=== PATIENT | male | born 1945 | race Caucasian/White ===

== ENCOUNTER 2017-10-14 16:57 | Emergency (ER) | payer OTHER ==
[~2017-10-14] VITALS: Ht 172.7 cm; Wt 129.3 kg
--- NOTE | 2017-10-14 19:21 | RADIOLOGY REPORT ---
EXAMINATION: CHEST 2 VIEWS CLINICAL INFORMATION: Cough. COMPARISON: 09/12/2015. TECHNIQUE: PA and lateral views of the chest were obtained. FINDINGS: The cardiac silhouette is not enlarged. The mediastinal and hilar contours are unremarkable. There are neither pleural effusions nor pneumothoraces. There are no consolidations. Lungs are hyperinflated. The osseous structures are stable. IMPRESSION: No evidence for acute disease. Lung hyperinflation.
[2017-10-14 20:37] LABS: ABSOLUTE BASOPHIL COUNT 0 /CUMM (0.0-0.2); ABSOLUTE EOSINOPHIL COUNT 0 /CUMM (0.0-0.7); ABSOLUTE GRANULOCYTE CT 9.7 /CUMM (1.4-6.5); ABSOLUTE LYMPH COUNT 1.3 /CUMM (1.2-3.4); ABSOLUTE MONOCYTE COUNT 1.1 /CUMM (0.10-0.60); BASOPHIL % 0.4 % (0.0-2.0); EOSINOPHIL % 0.2 % (0-5); GRANULOCYTE % 79.3 % (42.2-75.2); HEMATOCRIT 40.5 % (42-52); MEAN CORPUSCULAR HGB 27.9 PG (27.0-31.0); MEAN CORPUSCULAR HGB CONC 33.5 G/DL (33.0-37.0); MEAN CORPUSCULAR VOLUME 83.3 FL (80.0-94.0); MEAN PLATELET VOLUME 9.3 FL (7.4-10.4); PLATELET COUNT 254 /CUMM (130-400); RBC DISTRIBUTION WIDTH 15.8 % (11.5-14.5); RED BLOOD CELL CT 4.86 /CUMM (4.70-6.10); WHITE BLOOD CELL COUNT 12.2 /CUMM (4.8-10.8)
--- NOTE | 2017-10-14 20:59 | ED DYSPNEA/ASTHMA COMPLAINT ---
History of Present Illness General Chief Complaint: General Adult Stated Complaint: SIB DR CHANG FOR ADMISSION ?PNEMONIA Source: patient, family Exam Limitations: no limitations Vital Signs & Intake/Output Vital Signs & Intake/Output Vital Signs Date Time Temp Pulse Resp B/P B/P Pulse O2 O2 Flow FiO2 Mean Ox Delivery Rate 10/14 2158 97.5 89 18 122/78 96 Room Air 10/14 1826 97.5 92 20 114/77 95 Room Air ED Intake and Output 10/15 0000 10/14 1200 Intake Total Output Total Balance Patient 285 lb Weight Weight Estimated Measurement Method Allergies Coded Allergies: Penicillins (Mild, UNKNOWN 10/14/17) Reconcile Medications Albuterol Sulfate (Proventil Hfa) 90 MCG HFA.AER.AD 2 PUF INH Q4 PRN dyspnea Prednisone (Deltasone) 20 MG TABLET 2 TAB PO DAILY bronchitis Triage Note: RECEIVED 72 YO MALE SENT BY DR CHANG FOR R/O PNA AND POSSIBLE ADMISSION. PT REPORTS SHORTNESS OF BREATH X ONE MONTH WITH CONGESTION. PT DENIES ACUTE COUGH, OR SORE THROAT. NO FEVERS, + SWEATING. Triage Nurses Notes Reviewed? yes Onset: Gradual Duration: week(s): Timing: recent history Severity: moderate HPI: 72-year-old male with history of HTN presents to emergency department sent in by primary care doctor to evaluate for PNA. Patient complaining of dyspnea, worse with exertion times one month. Patient also complaining of nasal congestion. Patient reports that initially he had dry cough however his cough symptoms have subsided. Patient also had diarrhea a few weeks ago however this has subsided as well. Patient is a former smoker, quit 1 month ago. Patient has no prior history of dyspnea or lung pathology. He denies sore throat, ear pain, fevers, chills, abdominal pain, nausea, vomiting, chest pain, hemoptysis. (Christine BARKER,Liz Hurley) Past History Travel History Traveled to [place] past 21 day No Medical History Any Pertinent Medical History? see below for history Neurological: NONE EENT: NONE Cardiovascular: hypertension, hyperlipidemia Respiratory: NONE Gastrointestinal: OBESITY Hepatic: NONE Renal: NONE Musculoskeletal: NONE Psychiatric: anxiety, depression Endocrine: NONE Blood Disorders: NONE Cancer(s): NONE Surgical History Surgical History: non-contributory Psychosocial History What is your primary language Macanese Tobacco Use: Quit <30 days ago Family History Hx Contributory? No (Liz Mosley) Review of Systems Review of Systems Constitutional: Reports: no symptoms. EENTM: Reports: see HPI. Respiratory: Reports: see HPI. Cardiovascular: Reports: no symptoms. GI: Reports: see HPI. Genitourinary: Reports: no symptoms. Musculoskeletal: Reports: no symptoms. Skin: Reports: no symptoms. Neurological/Psychological: Reports: no symptoms. Hematologic/Endocrine: Reports: no symptoms. Immunologic/Allergic: Reports: no symptoms. All Other Systems: Reviewed and Negative (Christine BARKER,Liz Hurley) Physical Exam Physical Exam General Appearance: well developed/nourished, no apparent distress, alert, awake Head: atraumatic, normal appearance Eyes: Bilateral: normal appearance. Ears, Nose, Throat: normal ENT inspection, hearing grossly normal Neck: normal inspection, supple, full range of motion Respiratory: diminished breath sounds bilateral lung portillo Cardiovascular: regular rate/rhythm Peripheral Pulses: 2+ radial (R), 2+ radial (L) Gastrointestinal: normal bowel sounds, soft, non-tender, no organomegaly Extremities: normal inspection, normal capillary refill, no edema Neurologic/Psych: awake, alert, oriented x 3 Skin: intact, normal color, warm/dry Core Measures ACS in differential dx? Yes CVA/TIA Diagnosis No Sepsis Present: No Sepsis Focused Exam Completed? No (Liz Mosley) Progress Differential Diagnosis: asthma, AMI, bronchitis, CHF, COPD, pericarditis, pulmonary embolism, pneumonia, pneumothorax, unstable angina Plan of Care: Orders Procedure Date/time Status EKG 10/14 1837 Active RAPID VIRAL INFLUENZA A 10/14 180 Complete TROPONIN LEVEL 10/14 180 Complete COMPREHENSIVE METABOLIC PANEL 10/14 180 Complete CBC WITHOUT DIFFERENTIAL 10/14 180 Complete B-TYPE NATRIURETIC PEP (BNP) 10/14 180 Complete Laboratory Tests 10/14/17 1953: Anion Gap 15, Estimated GFR 37 L, BUN/Creatinine Ratio 25.6 H, Glucose 142 H, Calcium 9.0, Total Bilirubin 0.7, AST 25, ALT 20 L, Alkaline Phosphatase 73, Troponin I 0.01, Vgv-B-Effxzifbzpr Pept 375 H, Total Protein 7.1, Albumin 3.7, Globulin 3.4, Albumin/Globulin Ratio 1.1, CBC w Diff NO MAN DIFF REQ, RBC 4.86, MCV 83.3, MCH 27.9, MCHC 33.5, RDW 15.8 H, MPV 9.3, Gran % 79.3 H, Lymphocytes % 10.8 L, Monocytes % 9.3, Eosinophils % 0.2, Basophils % 0.4, Absolute Granulocytes 9.7 H, Absolute Lymphocytes 1.3, Absolute Monocytes 1.1 H, Absolute Eosinophils 0, Absolute Basophils 0 Microbiology 10/14 2131 NASOPHARYN: Influenza Virus A & B Rapid Smear - COMP Patient's chest x-ray shows lung hyperinflation without other acute abnormality. Patient's EKG is in sinus rhythm, troponin negative. Patient has chest pain at this time. BNP is not significantly elevated. This patient's symptoms are consistent with likely new onset COPD. patient started on steroids and albuterol inhaler. He is offered breathing treatment here in the emergency department however declines at this time. The patient was given a shingle trimmer to follow- up with regarding his breathing symptoms. Patient's vital signs are stable here in the emergency department, he is nontoxic appearing. Patient to begin new medications and follow-up with specialist as recommended. He will return to the emergency room with any worsening symptoms. Patient agrees with the plan of care. The patient was seen and evaluated by Dr. Pena who agrees with this plan. Diagnostic Imaging: Viewed by Me: Radiology Read. Discussed w/RAD: Radiology Read. Radiology Impression: PATIENT: VICKI COLE PRESENT AGE: 72 PATIENT ACCOUNT NO: [id number] : 46 LOCATION: [facility] ORDERING PHYSICIAN: Liz BARKER SERVICE DATE: 10/14/17 EXAM TYPE: RAD - XRY-CHEST XRAY, TWO VIEWS EXAMINATION: CHEST 2 VIEWS CLINICAL INFORMATION: Cough. COMPARISON: 09/12/2015. TECHNIQUE: PA and lateral views of the chest were obtained. FINDINGS: The cardiac silhouette is not enlarged. The mediastinal and hilar contours are unremarkable. There are neither pleural effusions nor pneumothoraces. There are no consolidations. Lungs are hyperinflated. The osseous structures are stable. IMPRESSION: No evidence for acute disease. Lung hyperinflation. DICTATED BY: Ishaan Martin MD DATE/TIME DICTATED:10/14/171916 ENVIRONMENTAL PROGRAM MANAGER:RADHA DATE/TIME TRANSCRIBED:1916 CONFIDENTIAL, DO NOT COPY WITHOUT APPROPRIATE AUTHORIZATION. < Electronically signed in Other Vendor System> SIGNED BY: Ishaan Martin MD 10/14/171920 Initial ED EKG: sinus rhythm @81bpm, nonspecific ST changes (Liz Mosley) Departure Departure Disposition: HOME OR SELF CARE Condition: Stable Clinical Impression Primary Impression: Dyspnea Secondary Impressions: COPD (chronic obstructive pulmonary disease) Referrals: Desmond QUINN,Joselo Hernández (PCP/Family) Additional Instructions: Use albuterol inhaler as prescribed as needed for shortness of breath. You were also given a prescription for steroids to begin tomorrow morning. Follow-up with shingle trimmer referred to you today, call phone number to set up an appointment within one to 2 weeks. With any worsening symptoms such as shortness of breath, chest pain, fevers, abdominal pain please return to the emergency department. Please note that there might be incidental findings in your evaluation that are unrelated to the current emergency department visit. Please notify your primary care doctor about this emergency department visit in order to obtain and review all of the testing performed so that these incidental findings can be monitored as needed. If you had an x-ray performed, please understand that some fractures may not be seen on the initial set of x-rays. If your symptoms persist you might need a repeat set of x-rays to check for such a fracture. If you had a laceration evaluated, please understand that foreign bodies such as glass or wood may not be visible to the naked eye or on plain x-rays. If the wound becomes red, swollen, increasingly more painful or if there is any drainage from the wound, please have it reevaluated by a physician for the possibility of a retained foreign body. If you're unable to follow up as outlined in the discharge instructions please return to the emergency department. Thank you for choosing the [facility] Emergency Department for your care. It was a pleasure to serve you today. Departure Forms: Customer Survey General Discharge Information Prescriptions: Current Visit Scripts Prednisone (Deltasone) 2 TAB PO DAILY #10 TAB Albuterol Sulfate (Proventil Hfa) 2 PUF INH Q4 PRN dyspnea #1 INHAL (Liz Mosley) PA/[employer]UNITY [employer] Co-Sign Statement Statement: ED Attending supervision documentation- [X] I saw and evaluated the patient. I have also reviewed all the pertinent lab results and diagnostic results. I agree with the findings and the plan of care as documented in the PA's/COMMUNITY OUTRE[employer]ATE's documentation. [] I have reviewed the ED Record and agree with the PA's/[employer]ITY [employer]'s documentation. [] Additions or exceptions (if any) to the PAs/COMMUNITY [employer]'s note and plan are summarized below: [] (Sunil Pena DO) Critical Care Note Critical Care Note Critical Care Time: non-applicable (Christine BARKER,Liz Hurley)
[2017-10-14 21:58] VITALS: BP 122/78
[2017-10-14] MEDS ORDERED: DELTASONE20 MG PO (22:34)
[2017-10-14] MEDS ORDERED: PROVENTIL HFA6.7 GM INH (22:34)
== END 2017-10-14 22:45 ==
LOC: ERH 16:57
PROVIDERS: Physician Assistant Medical
DX: R06.00 Dyspnea, unspecified (principal); J44.9 Chronic obstructive pulmonary disease, unspecified; Z87.891 Personal history of nicotine dependence
CPT/HCPCS: 71046; 87804; 87804-59; 93005; 93010